=== PATIENT | female | born 1980 | race Caucasian/White ===

== ENCOUNTER 2016-10-29 15:51 | Outpatient (CLI) | payer OTHER | END 2016-10-29 19:07 | disposition home or self-care (01) | LOC: GENOP 15:51 | DX: O16.3 Unspecified maternal hypertension, third trimester (principal); O99.89 Other specified diseases and conditions complicating pregnancy, childbirth and the puerperium; R60.9 Edema, unspecified; Z3A.38 38 weeks gestation of pregnancy | CPT/HCPCS: 81001; G0463 ==

== ENCOUNTER → 2020-10-02 | Outpatient (CLI) | payer BC | LOC: MAMO 15:05 | DX: Z12.31 Encounter for screening mammogram for malignant neoplasm of breast (principal) | CPT/HCPCS: 77063; 77067 ==

== ENCOUNTER → 2021-01-01 | Outpatient (CLI) | payer BC | LOC: KOH-I 09:33 | DX: S99.911A Unspecified injury of right ankle, initial encounter (principal) | CPT/HCPCS: 73610 ==